=== PATIENT | female | born 1955 ===

== ENCOUNTER → 2016-07-17 | Day surgery (SDC) | payer OTHER ==
--- NOTE | 2016-07-09 13:03 | MH ---
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 ATTENDING PHYSICIAN Bev Dia MD HISTORY OF PRESENT ILLNESS The patient is a 61-year-old female noted to have an area of microcalcification in the upper outer right breast on a screening mammogram March 23 at [facility]. This was confirmed with a diagnostic right breast mammogram on April 06. Stereotactic biopsy was performed on May 04 and this demonstrated atypical ductal hyperplasia. The patient was seen on May 12 and I recommended a needle localized excision of the area to rule out associated malignancy. The patient now presents for the procedure. PAST MEDICAL HISTORY She has no medical problems. PAST SURGERIES Included: 1. an aortic bypass graft for aortic stenosis of the abdominal aorta in 1982 2. Jaw surgery in 1995. MEDICATIONS Included Activella which was hormone replacement which I told her to discontinue. ALLERGIES She has no drug allergies. REPRODUCTIVE HISTORY G1, P0, A1. Menarche age 14, menopause age 50. She had been taking hormone replacement for osteoporosis. FAMILY HISTORY Significant for a paternal aunt with postmenopausal breast cancer at age 59. REVIEW OF SYSTEMS A 12-point review of systems was otherwise noncontributory. PHYSICAL EXAMINATION She was 5 feet tall and weighed 98 pounds with a BMI of 19. Blood pressure was 105/63, temperature 98, heart rate 64, respirations 16. HEENT: Exam was unremarkable. NECK: The neck was supple with no adenopathy or thyromegaly. CHEST: Clear throughout. CARDIAC: Exam was unremarkable with no murmurs, rubs or gallops. BREASTS: Exam reveals fibrocystic changes and no palpable masses with 1+ ptosis and a healed biopsy site in the upper outer right breast. ABDOMEN: The abdomen was soft and nontender with a midline hypertrophic scar. The remainder of her exam was unremarkable. IMPRESSION Ms. Villalpando has atypical ductal hyperplasia and has a 20% risk of associated malignancy adjacent to the atypia. I have recommended a needle localized excision of the area and she understands and agrees to proceed. MD SAQIB Tolentino/RADHA /12:46 PM :56 PM
[~2016-07-17] MED LIST: BUPIVACAINE HCL PF 0.5% 10 ML VIAL ONE; ISOSULFAN BLUE 50 MG/5 ML VIAL SQ ONE; LACTATED RINGER'S 1000 ML INJ 1,000 ML ONE; MIDAZOLAM HCL 2 MG/2 ML VIAL ONE; ONDANSETRON HCL 4 MG/2 ML VIAL IV PUSH ONE; PROPOFOL 200 MG/20 ML AMP IV ONE; SODIUM CHLORIDE 0.9% INJ 10 ML ONE; ceFAZolin 2 GM PREMIX 50 ML ONE
--- NOTE | 2016-07-17 12:22 | TN ---
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 PROCEDURE PERFORMED Right breast needle-localized lumpectomy. SURGEON Bev Dia ANESTHESIA General via LMA device. INDICATION The patient is a 61-year-old with a history of recent right breast microcalcifications. Stereotactic biopsy demonstrated atypical ductal hyperplasia and she now presents for re-excision of the area. FINDINGS At the time of surgery specimen mammogram did demonstrate an intact wire and the biopsy clip and calcifications were in the specimen. Dense breast tissue was also noted and there was no dominant mass. PROCEDURE After informed consent was obtained and site verification was performed, the patient was brought to the radiology suite where she underwent needle localization of her right breast biopsy site. She was then brought to the major operating room where she underwent general anesthesia via an LMA device. The right breast was prepped and draped in sterile fashion. She was given a single dose of IV Ancef and sequential compression hose were placed. A periareolar incision was anesthetized at 10 o'clock with 0.5% Marcaine plain and both sharp and electrocautery dissection were performed until the wire entry point through the skin was identified and secured with a hemostat. The wire was cut off at the skin with pin cutters and a 2-0 silk transfixion suture was placed at the wire entry point into the breast tissue. Both sharp and electrocautery dissection were then performed circumferentially around the wire and the specimen was oriented with two sutures anteriorly, one short suture superiorly, and one long suture laterally. Hemostasis was easily obtained with electrocautery and the specimen was sent to radiology with the findings as noted. It was then sent for permanent pathologic evaluation. Good hemostasis was noted and the wound was closed using interrupted 3-0 Vicryl subcutaneous sutures and a 4-0 Monocryl subcuticular suture. Steri-Strips and a sterile dressing were applied. The patient tolerated the procedure well with an estimated blood loss of less than 50 cc. All sponge and needle counts were correct at the conclusion of the case. MD SAQIB Tolentino/LARRY /11:52 AM /12:09 PM
== END | disposition home or self-care (01) ==
LOC: ESDC 08:03
PROVIDERS: ATTEND Surgery
DX: N60.91 Unspecified benign mammary dysplasia of right breast (principal)
CPT/HCPCS: 00400; 19125; 88307; J0690; J2250; J2405; J3010; J7120; Q9968